=== PATIENT | female | born 1965 | race Caucasian/White ===

== ENCOUNTER 2020-07-28 09:27 | Day surgery (SDC) | payer OTHER ==
[~2020-07-28 09:27] MED LIST: Lactated Ringers 1,000 ML IV SCH
[2020-07-28] MEDS ORDERED: fentaNYL 100 MCG/2 ML SDV ONE (10:23)
[2020-07-28] MEDS ORDERED: Propofol 200 MG/20 ML SDV ONE (10:23)
[2020-07-28] MEDS ORDERED: Midazolam 1 MG/ML 2 ML SDV ONE (10:23)
[2020-07-28 11:24] VITALS: BP 127/58; PULSE 59
--- NOTE | 2020-07-28 13:52 | OR ---
PREOPERATIVE DIAGNOSES: 1. History of colon polyps. 2. Family history of colon cancer. POSTOPERATIVE DIAGNOSES: 1. History of colon polyps. 2. Family history of colon cancer. PROCEDURE PERFORMED: Total flexible colonoscopy with biopsies. ANESTHESIA: MAC anesthesia. COMPLICATIONS: None apparent. BLOOD LOSS: Minimal. FINDINGS: 1. Ascending colon polyp, 3 mm, cold snare. 2. Transverse colon polyps x2, 4 mm, cold snare. START TIME: 1030. CECUM TIME: 1035. STOP TIME: 1051. BOWEL PREP: [place] class 3. INDICATION FOR PROCEDURE: Jose Cruz Grider is a 54-year-old female who is here for routine colonoscopy. She had her last scope 5 years ago, at which point 1 polyp was found. She denies a history of bloody or dark black stool. Her grandfather did have a colorectal cancer. DETAILS OF PROCEDURE: Informed consent was obtained. The patient was brought to the procedure room and placed in left lateral decubitus position. MAC anesthesia was induced by Anesthesia colleagues without incident. Colonoscope was introduced into the rectum and advanced all the way to the cecum. Appendiceal orifice was photographed. Terminal ileum was intubated and photographed. The colonoscope was then slowly withdrawn. No pathology was identified except for what is mentioned in the above findings section. Retroflexed view was obtained and the colonoscope was removed. The patient tolerated the procedure well, was awoken from MAC anesthesia by Anesthesia colleagues without incident. PATHOLOGY: RECOMMENDATIONS: Repeat screening colonoscopy in 3 years. RKM: 07/28/2020 10:56:31 MODL: 07/28/2020 12:52:00 /[id number]
== END 2020-07-28 12:20 | disposition home or self-care (01) ==
LOC: VM.SDS 09:27
PROVIDERS: ATTEND Student in an Organized Health Care Education/Training Program
DX: Z12.11 Encounter for screening for malignant neoplasm of colon (principal); D12.2 Benign neoplasm of ascending colon; D12.3 Benign neoplasm of transverse colon; Z80.0 Family history of malignant neoplasm of digestive organs; Z79.899 Other long term (current) drug therapy
CPT/HCPCS: 00811; 45385; J2250; J2704; J3010; J7120

== ENCOUNTER 2023-10-30 10:37 | Day surgery (SDC) | payer OTHER ==
[2023-10-30] MEDS: Lactated Ringers 1,000 ML IV SCH (10:55)
[2023-10-30] MEDS ORDERED: Propofol 200 MG/20 ML SDV ONE ×2 (11:23→12:05)
[2023-10-30] MEDS ORDERED: fentaNYL 100 MCG/2 ML SDV ONE (11:24)
[2023-10-30 12:47] VITALS: BP 104/60; PULSE 62
== END 2023-10-30 14:40 | disposition home or self-care (01) ==
LOC: VM.SDS 10:37
PROVIDERS: ATTEND Family Medicine
DX: Z12.11 Encounter for screening for malignant neoplasm of colon (principal); D12.5 Benign neoplasm of sigmoid colon; B02.9 Zoster without complications; Z80.0 Family history of malignant neoplasm of digestive organs; Z79.899 Other long term (current) drug therapy
CPT/HCPCS: 00811; J2704; J3010; J7120